=== PATIENT | female | born 1995 | race Asian ===

== ENCOUNTER 2017-03-20 18:02 | Emergency (ER) | payer OTHER ==
[~2017-03-20] VITALS: Ht 152.4 cm; Wt 61.2 kg
[2017-03-20 19:05] LABS: PLATELET COUNT 313 K/uL (152-353)
[2017-03-20 19:22] LABS: POTASSIUM 3.5 mmol/L (3.6-5.2)
== END 2017-03-20 20:45 | disposition home or self-care (01) ==
LOC: ED 18:02
DX: R51 Headache (principal)
CPT/HCPCS: 36415; 80053; 81000; 81025; 85027; 87081; 87804; 87880; 99283

== ENCOUNTER 2018-07-17 10:32 | Emergency (ER) | payer OTHER ==
[~2018-07-17] VITALS: Ht 152.4 cm; Wt 70.3 kg
[2018-07-17 10:38] VITALS: TEMP 97.7
[2018-07-17 11:54] VITALS: BP 97/59
[2018-07-17 12:00] LABS: PLATELET COUNT 374 K/uL (152-353)
[2018-07-17 12:10] LABS: POTASSIUM 4.2 mmol/L (3.6-5.2); SODIUM 138 mmol/L (136-145)
== END 2018-07-17 13:50 | disposition home or self-care (01) ==
LOC: ED 10:32
PROVIDERS: Family Medicine
DX: K21.9 Gastro-esophageal reflux disease without esophagitis (principal); K29.60 Other gastritis without bleeding
CPT/HCPCS: 36415; 80053; 81000; 81025; 82550; 84484; 85027; 93005; 99283

== ENCOUNTER 2022-09-29 05:57 | Emergency (ER) | payer OTHER ==
[~2022-09-29] VITALS: Ht 152.4 cm; Wt 65.8 kg
[2022-09-29 06:10] VITALS: BP 112/76; TEMP 98.7
[2022-09-29 06:44] LABS: PLATELET COUNT 373 K/uL (152-353)
[2022-09-29 06:57] LABS: POTASSIUM 3.6 mmol/L (3.6-5.2)
== END 2022-09-29 08:03 | disposition home or self-care (01) ==
LOC: ED 05:57
PROVIDERS: Family Medicine
DX: R51.9 Headache, unspecified (principal); I10 Essential (primary) hypertension
CPT/HCPCS: 80053; 81025; 85027; 99283